=== PATIENT | male | born 1960 | race Caucasian/White ===

== ENCOUNTER 2018-10-05 22:22 | Emergency (ER) | payer BC ==
[~2018-10-05] VITALS: Ht 170.2 cm; Wt 70.3 kg
[~2018-10-05 22:22] MED LIST: NAPR-683 PO
[2018-10-05 23:19] VITALS: BP 105/62
[2018-10-06] MEDS ORDERED: METH4TAB2 PO (00:41)
--- NOTE | 2018-10-06 00:42 | PHYS DOC ---
Past Medical History Past Medical History: No Pertinent History, Other Additional Past Medical Histor: CARPAL TUNNEL, ARTHRITIS IN BACK Past Surgical History: Other Additional Past Surgical Histo: CARPAL TUNNEL LEFT WRIST, Lymph node removal Alcohol Use: None Drug Use: None Adult General Chief Complaint Chief Complaint: FOREIGNBODY EAR HPI HPI Patient is a 57 year old male who presents with her last 3 weeks has had right ear pain and states that a bug crawled in his urine he can feel it moving around. Patient states he tried to rinse it out with water and it only made it worse and that he was trying to drown the bug but it did not work. Patient states he still feels it moving around and especially at night. Patient states he has a lot of drainage especially on the right side that goes down the back of his throat. Patient states the right side of his throat is even becoming sore. Patient states whenever the boxers moving around makes his right eye water and didn't having pain in the right side of his face. Patient denies any other symptoms. Afebrile. Review of Systems Review of Systems Constitutional: Denies fever or chills [] Eyes: Denies change in visual acuity, redness, or eye pain [] HENT: Denies nasal congestion or sore throat [] Respiratory: Denies cough or shortness of breath [] Cardiovascular: No additional information not addressed in HPI [] GI: Denies abdominal pain, nausea, vomiting, bloody stools or diarrhea [] : Denies dysuria or hematuria [] Musculoskeletal: Denies back pain or joint pain [] Integument: Denies rash or skin lesions [] Neurologic: Denies headache, focal weakness or sensory changes [] Endocrine: Denies polyuria or polydipsia [] All other systems were reviewed and found to be within normal limits, except as documented in this note. Allergies Allergies Allergies Coded Allergies Type Severity Reaction Last Updated Verified acetaminophen Allergy Intermediate 10/05/18 Yes codeine Allergy Intermediate 10/05/18 Yes hydrocodone Allergy Intermediate 10/05/18 Yes latex Allergy Intermediate 08/17/15 Yes Physical Exam Physical Exam Constitutional: Well developed, well nourished, no acute distress, non-toxic appearance. [] HENT: Normocephalic, atraumatic, bilateral external ears normal, oropharynx moist, no oral exudates, nose normal. [] Eyes: PERRLA, EOMI, conjunctiva normal, no discharge. [] Neck: Normal range of motion, no tenderness, supple, no stridor. [] Cardiovascular:Heart rate regular rhythm, no murmur [] Lungs & Thorax: Bilateral breath sounds clear to auscultation [] Abdomen: Bowel sounds normal, soft, no tenderness, no masses, no pulsatile masses. [] Skin: Warm, dry, no erythema, no rash. [] Back: No tenderness, no CVA tenderness. [] Extremities: No tenderness, no cyanosis, no clubbing, ROM intact, no edema. [] Neurologic: Alert and oriented X 3, normal motor function, normal sensory function, no focal deficits noted. [] Psychologic: Affect normal, judgement normal, mood normal. [] Current Patient Data Vital Signs Vital Signs Date Time Temp Pulse Resp B/P (MAP) Pulse Ox O2 Delivery O2 Flow Rate FiO2 10/05/18 23:19 97.9 63 16 105/62 (76) 97 Room Air 97.9 EKG EKG [] Radiology/Procedures Radiology/Procedures [] Course & Med Decision Making Course & Med Decision Making Patient is a 57 year old male who presents with her last 3 weeks has had right ear pain and states that a bug crawled in his urine he can feel it moving around. Patient states he tried to rinse it out with water and it only made it worse and that he was trying to drown the bug but it did not work. Patient states he still feels it moving around and especially at night. Patient states he has a lot of drainage especially on the right side that goes down the back of his throat. Patient states the right side of his throat is even becoming sore. Patient states whenever the boxers moving around makes his right eye water and didn't having pain in the right side of his face. Patient denies any other symptoms. Afebrile. No foreign body can be seen in the right year. Right ear tympanic is pearly white. There are some and mandibular lymph nodes that are slightly palpable. Throat is not reddened or swollen. There are no exudates the throat. Patient denies a runny nose, cough, chest pain, shortness of air, abdominal pain, nausea, vomiting, fever,numbness or tingling, dizziness, nasal congestion. No sinus tenderness. PERRLA. Lungs are clear to auscultation all lobes. skin pink warm and dry. Alert and oriented. The auditory with a steady gait. Mucous membranes moist. Right ear is rinsed out by patient child care leader. Nothing was rinsed out of ear. Patient states it feels better. I'll prescribe a Medrol Dosepak for the patient and he needs to follow-up with a primary care provider. Dragon Disclaimer Dragon Disclaimer This electronic medical record was generated, in whole or in part, using a voice recognition dictation system. Departure Departure Impression: Primary Impression: Ear pain, right Disposition: HOME, SELF-CARE Condition: STABLE Referrals: NO PCP (PCP) Patient Instructions: Medical Screening Exam Additional Instructions: Follow up with primary care doctor. Take medication as prescribed. Scripts Methylprednisolone (MEDROL) 4 Mg Tab.ds.pk 1 PKG PO UD, #1 PKG Prov: DANNY AYALA APRN 10/06/18 DANNY AYALA APRN Oct 06, 2018 00:42
== END 2018-10-06 00:53 | disposition home or self-care (01) ==
LOC: ER 22:22
DX: H92.01 Otalgia, right ear (principal); M19.90 Unspecified osteoarthritis, unspecified site; Z88.5 Allergy status to narcotic agent; Z88.6 Allergy status to analgesic agent; Z91.040 Latex allergy status
CPT/HCPCS: 99283